=== PATIENT | female | born 1970 | race Caucasian/White ===

== ENCOUNTER 2017-01-04 05:20 | Inpatient (IN) | payer OTHER ==
[~2017-01-04 05:20] MED LIST: AMBIEN CR12.5 MG PO; ASPIRIN81 M1 PO; CPAP; CYCLOBENZAPRINE5 M1 PO; EFFEXOR XR150 M1 PO; GLUCOPHAGE1000 M1 PO; LASIX20 M1 PO; MULTIVITAMINS1 EAC6 PO; PERCOCET 7.5-31 EAC1 PO; TRICOR145 M2 PO; VALSARTAN-HCTZ1 EA13 PO; ZOCOR40 M1 PO
[2017-01-05 05:59] LABS: BASO % 0.1 % (0-2); EOS % 0.3 % (0-7); HCT-HEMATOCRIT 29.3 % (34.0-49.0); HGB-HEMOGLOBIN 9.4 gm/dl (12.0-15.5); IMMATURE GRANULOCYTES ABSOLUTE 0.01 tho/cmm (0-0.03); IMMATURE GRANULOCYTES PERCENT 0.1 % (0-0.3); LYMPH % 21.1 % (20-45); LYMPH ABSOLUTE COUNT 1.5 tho/cmm (0.8-4.5); MCH (MEAN CORPUSCULAR HGB) 28.7 pg (28.0-32.0); MCHC MEAN CORPUSCULAR HGB CONC 32.1 % (32.0-36.0); MCV (MEAN CELL VOLUME) 89.6 fl (82.0-96.0); MEAN PLATELET VOLUME 9.2 cmc (9.4-12.4); MONO % 8.4 % (0-12); MONOCYTE ABSOLUTE COUNT 0.6 tho/cmm (0.0-1.2); NEUTROPHIL ABSOLUTE COUNT 4.8 tho/cmm (1.6-8.0); NEUTROPHIL-AUTOMATED 4.8 tho/cmm (1.6-8.0); PLATELET COUNT 317 tho/cmm (150-450); RED BLOOD COUNT 3.27 mil/cmm (4.00-5.20); RED CELL DISTRIBUTION WIDTH 14.5 % (12.4-16.4); WHITE BLOOD COUNT 6.9 tho/cmm (4.0-10.0)
[2017-01-05] MEDS ORDERED: HYCET 7.5 MG-3473 M2 PO (18:55)
[2017-01-05] MEDS ORDERED: PHENERGAN25 M4 PR (18:57)
[2017-01-05] MEDS ORDERED: ZOFRAN ODT4 MG SL (18:58)
[2017-01-05] MEDS ORDERED: STOP HOME MEDICATION (19:00)
--- NOTE | 2017-01-05 20:05 | NUR ---
VIRTUAL CARE NOTE DISCHARGE INSTRUCTIONS GIVEN TO PT. PT. IS ABLE TO RETURN INFORMATION X3.
== END 2017-01-05 20:44 | DRG 621 ==
LOC: SHSA 05:20 → ORW 07:37 → PACU 09:37 → 5WD 11:00
PROVIDERS: ADMIT Surgery
PROC: 0DB64Z3 Excision of Stomach, Percutaneous Endoscopic Approach, Vertical (ICD-10-PCS; principal; 2017-01-04)
DX: E66.01 Morbid (severe) obesity due to excess calories (principal); I10 Essential (primary) hypertension; E78.00 Pure hypercholesterolemia, unspecified; G47.33 Obstructive sleep apnea (adult) (pediatric); M54.5 Low back pain; M79.605 Pain in left leg; M79.604 Pain in right leg; Z68.41 Body mass index [BMI] 40.0-44.9, adult
CPT/HCPCS: J0131; J1170; J1335; J1650; J2270; J2405; J2765; J3010; J3480; J7030